=== PATIENT | male | born 1945 | race Caucasian/White ===

== ENCOUNTER 2022-06-04 16:49 | Inpatient (IN) ==
--- NOTE | 2022-06-04 18:02 | Emergency Department Note ---
Weakness HPI General Chief complaint: Weakness Stated complaint: Failure to thrive Time Seen by Provider: 06/04/22 18:02 Source: EMS and RN notes reviewed Mode of arrival: EMS Limitations: altered mental status and other History of Present Illness HPI Narrative: Narrative: 77-year-old male presents emergency department because of altered mental status. Patient is unable to provide any history. According to the verbal history from nurses the patient was in hospice which I later learned was due to his stage IV prostate cancer. As a hospice patient he was living in a home with at least 2 others. 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 Hospice determined that the patient could not safely stay at that location and so revoked hospice today. Patient was then to go to [place] for long term care but the patient did not qualify and ended up in our emergency department. I later learned that the patient had stage IV prostate cancer including mets to the liver and bony locations. Patient was unable to provide any history. I was told the patient had an ulcer on his left hip. Related Data Home Medications Medication Instructions Recorded Confirmed atenolol 50 mg tablet 50 mg PO ONCE 09/23/15 09/23/15 lisinopril 5 mg tablet 5 mg PO DAILY 09/23/15 09/23/15 simvastatin 20 mg tablet 20 mg PO HS 09/23/15 09/23/15 Previous Rx's Medication Instructions Recorded ondansetron 4 mg disintegrating 4 mg PO Q4-6H PRN Nausea And 09/24/15 tablet (Zofran ODT) Vomiting ##14 Allergies Allergy/AdvReac Type Severity Reaction Status Date / Time No Known Drug Allergies Allergy Verified 05/30/20 07:45 Review of Systems ROS ROS Narrative: Narrative: Limitations: ROS unobtainable due to patients medical condition (Nonverbal, altered mental status) [facility] Narrative Patient History Narrative: Narrative: Medical/Surgical/Family History All Active Problems (Updated 06/05/22 @ 07:22 by Aneesh Bernabe MD) Anemia (Acute) Acute alteration in mental status (Acute) assisted (current) use of antithrombotics/antiplatelets (Chronic) COPD (chronic obstructive pulmonary disease) with emphysema (Chronic) Hypertension, essential (Chronic) Peripheral arterial disease (Chronic) History of prostate cancer (Chronic) Nausea & vomiting (Acute) Lower gastrointestinal hemorrhage (Acute) Epistaxis (Acute) Medical History COPD (chronic obstructive pulmonary disease) with emphysema History of prostate cancer 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 05/27/2020 Nausea & vomiting Peripheral arterial disease Surgical History Hx of aorto-femoral bypass Patient indicates more subclavian area bypass down to the bilateral lower extremities. Social History Smoking Status: Former smoker Exam Narrative Narrative: Narrative: Left hip has a erythematous region approximately 3 cm diameter which has to smaller 1 today centimeter yellow skin breakdown areas that is partial- thickness. General Limitations: altered mental status and other General appearance: Present cachectic and in no apparent distress Head Head: Present atraumatic and normocephalic Eye Eye: Present normal appearance; Absent scleral icterus ENT ENT: Present mucous membranes dry Neck Neck: Present other (Full body stiffness. Unable to flex and extend the neck but also unable to move it side to side or to rotate on its axis.) Chest Chest: Present symmetric chest wall rise Respiratory Respiratory: Present normal lung sounds bilaterally; Absent respiratory distress Cardiovascular Cardiovascular: Present normal rhythm and tachycardia Adbominal Abdominal: Present soft; Absent tenderness Extremities Extremities: Absent pedal edema Back Back: Absent tenderness Neurological Neurological: Present other (Moans and tried to form words but was unintelligible) Psychiatric Psychiatric: Absent tearful or polite Skin Skin: Present warm (WNL) and dry Course Vital Signs Vital signs: Vital Signs Temperature 97.7 F 06/04/22 16:51 Pulse Rate 90 06/04/22 16:51 Respiratory Rate 18 06/04/22 16:51 Blood Pressure 137/74 06/04/22 16:51 Pulse Oximetry (%) 87 L 06/04/22 16:51 Oxygen Delivery Method 06/04/22 16:51 Temperature 97.9 F 06/05/22 01:30 Pulse Rate 91 H 06/05/22 01:30 Respiratory Rate 16 06/05/22 01:30 Blood Pressure 123/63 06/05/22 01:30 Pulse Oximetry (%) 91 06/05/22 01:30 Oxygen Delivery Method 06/05/22 01:30 Oxygen Flow Rate (L/min) 2 06/05/22 01:30 MDM MDM Narrative Medical decision making narrative: Narrative: Elderly male presents emerged department with stage IV prostate cancer in hospice until earlier today when it was revoked now with altered mental status and unknown baseline. Differential diagnosis includes mets to the brain, sepsis, dehydration, UTI, other. urine dip MOD blood. no nitri. no leuk. concentrated Laboratory:White count was elevated at 12.1 with a hemoglobin of 10.3 which was higher than 2 years ago. Patient has history of anemia. INR was 1.2 electrolytes were normal BUN and creatinine were normal glucose was mildly elevated at 116 bilirubin mildly elevated at 1.2 urinalysis showed 5 red blood cells and 9 white blood cells per high-powered field CT results showed no acute pathology. It was later reviewed by our radiologist who had the following impression: IMPRESSION: Mild atrophy and chronic ischemic changes in the deep cerebral white matter-expected for age. A few small remote lacunar infarcts in the basal ganglia and thalamus. No acute findings Soft tissue filling the mesotympanium of the left petrous temporal region. This may represent fibrosis from prior inflammation, active inflammation or cholesteatoma. Please correlate with symptoms of left conductive hearing loss and consider otolaryngology referral Patient had 2 SIRS criteria with a white count greater than 12,000 and heart rate greater than 90. He had a suspected infection in his bladder but it turned out not to be his bladder I had initiated 1 g of ceftriaxone and 500 mg of azithromycin prior to getting the urine results in anticipation of sepsis. Patient also had a wound on his left hip which was a stage II ulcer that could have been infected but I suspect is not. Chest x-ray is suspicious for effusion which may be secondary to the cancer and could potentially have infection or pneumonia as well. Chest x-ray was later interpreted by radiologist to show a large left pleural effusion with underlying COPD but no comment regarding possible infection. Case was discussed with , the hospitalist and the patient will be admitted for altered mental status. Lab Data Result diagrams: 06/04/22 18:12 06/04/22 18:12 Labs: Lab Results 06/04/22 06/04/22 06/04/22 Range/Units 18:12 18:12 19:36 WBC 12.1 H (4.5-11.0) K/mcL RBC 3.22 L (4.63-6.08) M/mcL Hgb 10.3 L (13.7-17.5) g/dL Hct 31.8 L (40.1-51.0) % MCV 98.8 (80.0-100.0) fL MCH 32.0 (26.0-34.0) pg MCHC 32.4 (31.0-36.0) g/dL RDW 22.5 H (11.5-14.5) % Plt Count 212 (140-440) K/mcL MPV 10.9 H (7.4-10.4) fL Immature Gran % (Auto) 0.6 H (0.0-0.5) % Neut % (Auto) 78.6 H (38.0-78.0) % Lymph % (Auto) 9.7 L (15.5-49.0) % [place] % (Auto) 10.8 (1.0-12.0) % Eos % (Auto) 0.1 (0.0-7.0) % Baso % (Auto) 0.2 (0.0-2.0) % Lymph # (Auto) 1.17 L (1.50-4.80) K/mcL [place] # (Auto) 1.31 H (0.10-0.90) K/mcL Eos # (Auto) 0.01 (0.00-0.70) K/mcL Baso # (Auto) 0.02 (0.00-0.30) K/mcL Immature Gran # 0.07 H (0.00-0.05) K/mcl Absolute Neutrophils 9.58 H (1.80-8.00) K/mcL PT (11.9-14.5) sec INR (0.9-1.1) VBG Lactic Acid 1.2 (0.5-2.0) mmol/L Sodium 137 (133-145) mmol/L Potassium 4.0 (3.3-5.1) mmol/L Chloride 99 (96-108) mmol/L Carbon Dioxide 29 (22-30) mmol/L Anion Gap 9.0 (8.0-16.0) BUN 21 (8-23) mg/dL Creatinine 0.9 (0.7-1.2) mg/dL GFR Calculation 82 Glucose 116 H (70-105) mg/dL Calcium 8.2 L (8.6-10.4) mg/dL Total Bilirubin 1.2 H (0.1-1.0) mg/dL AST 20 (<40) U/L ALT 7 (<40) U/L Alkaline Phosphatase 210 H (39-117) U/L Total Protein 6.4 (5.9-8.4) gm/dL Albumin 1.8 L (3.2-5.2) gm/dL Globulin 4.6 H (2.2-3.7) gm/dL Albumin/Globulin Ratio 0.4 L (1.0-2.3) Urine Color Urine Appearance (Clear) Urine pH (5.0-9.0) Ur Specific [place] (1.000-1.035) Urine Protein (Negative) mg/dL Urine Glucose (UA) (Negative) mg/dL Urine Ketones (Negative) mg/dL Urine Occult Blood (Negative) [place]uel[place]/mcL Urine Nitrate (Negative) Urine Bilirubin (Negative) mg/dL Urine Urobilinogen mg/dL Ur Leukocyte Esterase (Negative) /uL Urine RBC (0-3) /hpf Urine WBC (0-4) /hpf Ur Squamous Epith Cells (0-4) /hpf Urine Bacteria (0) /hpf Hyaline Casts (0-2) /lph Urine Mucus (None) /hpf Ur Culture Indicated? 06/04/22 06/04/22 Range/Units 19:36 20:31 WBC (4.5-11.0) K/mcL RBC (4.63-6.08) M/mcL Hgb (13.7-17.5) g/dL Hct (40.1-51.0) % MCV (80.0-100.0) fL MCH (26.0-34.0) pg MCHC (31.0-36.0) g/dL RDW (11.5-14.5) % Plt Count (140-440) K/mcL MPV (7.4-10.4) fL Immature Gran % (Auto) (0.0-0.5) % Neut % (Auto) (38.0-78.0) % Lymph % (Auto) (15.5-49.0) % [place] % (Auto) (1.0-12.0) % Eos % (Auto) (0.0-7.0) % Baso % (Auto) (0.0-2.0) % Lymph # (Auto) (1.50-4.80) K/mcL [place] # (Auto) (0.10-0.90) K/mcL Eos # (Auto) (0.00-0.70) K/mcL Baso # (Auto) (0.00-0.30) K/mcL Immature Gran # (0.00-0.05) K/mcl Absolute Neutrophils (1.80-8.00) K/mcL PT 15.5 H (11.9-14.5) sec INR 1.2 H (0.9-1.1) VBG Lactic Acid (0.5-2.0) mmol/L Sodium (133-145) mmol/L Potassium (3.3-5.1) mmol/L Chloride (96-108) mmol/L Carbon Dioxide (22-30) mmol/L Anion Gap (8.0-16.0) BUN (8-23) mg/dL Creatinine (0.7-1.2) mg/dL GFR Calculation Glucose (70-105) mg/dL Calcium (8.6-10.4) mg/dL Total Bilirubin (0.1-1.0) mg/dL AST (<40) U/L ALT (<40) U/L Alkaline Phosphatase (39-117) U/L Total Protein (5.9-8.4) gm/dL Albumin (3.2-5.2) gm/dL Globulin (2.2-3.7) gm/dL Albumin/Globulin Ratio (1.0-2.3) Urine Color Yellow Urine Appearance Clear (Clear) Urine pH 5.5 (5.0-9.0) Ur Specific [place] 1.025 (1.000-1.035) Urine Protein 30 mg/dl A (Negative) mg/dL Urine Glucose (UA) Negative (Negative) mg/dL Urine Ketones Trace A (Negative) mg/dL Urine Occult Blood Moderate A (Negative) [place]/mcL Urine Nitrate Negative (Negative) Urine Bilirubin Negative (Negative) mg/dL Urine Urobilinogen 4.0 e.u./dl A mg/dL Ur Leukocyte Esterase Negative (Negative) /uL Urine RBC 5 H (0-3) /hpf Urine WBC 9 H (0-4) /hpf Ur Squamous Epith Cells 0 (0-4) /hpf Urine Bacteria None (0) /hpf Hyaline Casts 1 (0-2) /lph Urine Mucus Many A (None) /hpf Ur Culture Indicated? No ED POC Tests ED POC Tests: JANUARY - SARS Antigen Negative Discharge Plan Patient/Caregiver Discharge Instructions Pt seen by PROJECT GEOPHYSICIST/PA only: No Clinical Impression: Acute alteration in mental status Patient Disposition: Xfer As Inpt ([facility]) Condition: Serious Discharge Date/Time: 06/05/22 01:10
[2022-06-04 18:41] LABS: Basophils # (Auto) 0.02 K/mcL (0.00-0.30); Basophils % (Auto) 0.2 % (0.0-2.0); Eosinophils # (Auto) 0.01 K/mcL (0.00-0.70); Eosinophils % (Auto) 0.1 % (0.0-7.0); Hematocrit 31.8 % (40.1-51.0); Hemoglobin 10.3 g/dL (13.7-17.5); Lymphocytes # (Auto) 1.17 K/mcL (1.50-4.80); Lymphocytes % (Auto) 9.7 % (15.5-49.0); Mean Cell Volume 98.8 fL (80.0-100.0); Mean Corpuscular HGB Conc 32.4 g/dL (31.0-36.0); Mean Platelet Volume 10.9 fL (7.4-10.4); Monocytes # (Auto) 1.31 K/mcL (0.10-0.90); Monocytes % (Auto) 10.8 % (1.0-12.0); Neutrophils % (Auto) 78.6 % (38.0-78.0); Platelet Count 212 K/mcL (140-440); RBC 3.22 M/mcL (4.63-6.08); Red Cell Distribution Width 22.5 % (11.5-14.5); WBC 12.1 K/mcL (4.5-11.0)
[2022-06-04 19:10] LABS: ALT/SGPT 7 U/L (<40); AST/SGOT 20 U/L (<40); Albumin 1.8 gm/dL (3.2-5.2); Albumin/Globulin Ratio 0.4 (1.0-2.3); Alkaline Phosphatase 210 U/L (39-117); Bilirubin,Total 1.2 mg/dL (0.1-1.0); Blood Urea Nitrogen 21 mg/dL (8-23); Calcium 8.2 mg/dL (8.6-10.4); Carbon Dioxide 29 mmol/L (22-30); Chloride 99 mmol/L (96-108); Globulin 4.6 gm/dL (2.2-3.7); Glomerular Filtration Rate 82; Glucose 116 mg/dL (70-105)
[2022-06-04] MEDS ORDERED: cefTRIAXone 1 GM VIAL IV ONE (20:16)
[2022-06-04] MEDS ORDERED: 0.9 % SODIUM CHLORIDE 1,000 ML IV ONE (20:34)
[2022-06-04] MEDS ORDERED: AZITHROMYCIN 500 MG in DEXTROSE 5% IN WATER 250 ML IV ONE (20:50)
[2022-06-04 21:09] LABS: INR 1.2 (0.9-1.1); Prothrombin Time 15.5 sec (11.9-14.5)
[2022-06-04 21:24] LABS: Appearance,Urine Clear (Clear); Bilirubin,Urine Negative (Negative); Color,Urine Yellow; Culture Indicated,Urine No; Glucose,Urine (UA) Negative (Negative); Ketones,Urine Trace mg/dL (Negative); Leukocyte Esterase,Urine Negative /uL (Negative); Mucus,Urine MANY /hpf; Nitrate,Urine Negative (Negative); PH,Urine 5.5 (5.0-9.0); Specific Gravity,Urine 1.025 (1.000-1.035); Urine Blood Moderate ery/mcL (Negative); Urine Hyaline Cast 1 /lph (0-2); Urine RBC 5 /hpf (0-3); Urine Squamous Epithelial Cell 0 /hpf (0-4); Urine WBC 9 /hpf (0-4); Urobilinogen,Urine 4.0 E.U./dL mg/dL
[2022-06-04] MEDS ORDERED: 0.9 % SODIUM CHLORIDE 1,000 ML IV SCH (23:45)
--- NOTE | 2022-06-05 05:29 | XRay Report ---
CLINICAL INFORMATION: Decreased mental status. COMPARISON: 12/09/[address] 11/01/2016 TECHNIQUE: PA and Lateral views FINDINGS: The heart size, mediastinum and pulmonary vessels are unremarkable. Moderate underlying centrilobular emphysema again noted. Moderate left pleural effusion occupies one half of the left thorax volume resulting in complete compressive left lower lobe and lingular atelectasis. The remainder of the lungs are clear. Stent overlies the right subclavian artery. IMPRESSION: Moderate/large left pleural effusion resulting in compressive atelectasis in the lingula and left lower lobe Underlying COPD Interpreted and Authenticated by: Jaylen De La Garza 06/05/22
--- NOTE | 2022-06-05 05:50 | Cat Scan Report ---
CLINICAL INFORMATION: Altered mental status COMPARISON: None. TECHNIQUE: 2.5 mm helical slices were obtained in the skull base to vertex. Following reconstruction, axial reformatted images were reviewed at bone and parenchymal windows. The exam was performed using radiation dose optimization techniques including, but not limited to, automated exposure control, adjustment of the mA and/or kV according to patient size and use of iterative reconstruction technique. FINDINGS: The ventricles, sulci, fissures, and cisterns are symmetrically enlarged compatible with mild age-related atrophy. No extra-axial fluid collections are identified. Mild patchy chronic ischemic changes, in the deep cerebral white matter, are expected for age. Few small remote lacunar infarcts in the basal ganglia and thalamus There is no hemorrhage, mass effect, or edema. Bone windows show soft tissue density filling the left mesotympanium. Few small polyp are present in the ethmoid and upper nasal region IMPRESSION: Mild atrophy and chronic ischemic changes in the deep cerebral white matter-expected for age. A few small remote lacunar infarcts in the basal ganglia and thalamus. No acute findings Soft tissue filling the mesotympanium of the left petrous temporal region. This may represent fibrosis from prior inflammation, active inflammation or cholesteatoma. Please correlate with symptoms of left conductive hearing loss and consider otolaryngology referral Interpreted and Authenticated by: Jaylen De La Garza 06/05/22
--- NOTE | 2022-06-05 07:43 | Internal Med History&Physical ---
HPI History of Present Illness Patient information: Note initiated : 06/05/22 at 7:39 am Service Date, if different from initiated Date: [] Patient: Emerson Moreno a 77 y/o M admitted on 06/05/22 for Failure to thrive. Chief Complaint: [] History of present illness: Mr. Moreon is a 77 year old M Presents to the ED with recent stupor declining in the home. APS is involved. Patient has [facility] involved in his care. APS unable to contact sister. [employer] is out of town. EMS found to young people smoking meth in the home that ran out when they arrived. Patient was found to be covered in stool. Patient not speaking. Patient saturations 87% on room air. Chest x-ray showing large left pleural effusion. Patient has a history of prostate cancer and metastatic disease to the liver as well as the pelvis lumbar spine and thoracic spine. He has declined treatment and thus the reason for being on hospice. He also has a history of severe cardiomyopathy severe vascular disease and COPD. 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 05/27/2020 Nausea & vomiting Peripheral arterial disease Surgical History Hx of aorto-femoral bypass Patient indicates more subclavian area bypass down to the bilateral lower extremities. MEDS/ALLERGIES Home Medications and Allergies Home Medications Medication Instructions Recorded Confirmed Type atenolol 50 mg tablet 50 mg PO ONCE 09/23/15 09/23/15 History lisinopril 5 mg tablet 5 mg PO DAILY 09/23/15 09/23/15 History simvastatin 20 mg tablet 20 mg PO HS 09/23/15 09/23/15 History ondansetron 4 mg disintegrating 4 mg PO Q4-6H PRN Nausea And 09/24/15 Rx tablet (Zofran ODT) Vomiting ##14 Allergies Allergy/AdvReac Type Severity Reaction Status Date / Time No Known Drug Allergies Allergy Verified 05/30/20 07:45 EXAM Constitutional Vitals: Temp Pulse Resp BP Pulse Ox O2 Del Method O2 Flow Rate 97.3 F 91 H 16 143/69 92 2 06/05/22 07:34 06/05/22 01:30 06/05/22 07:34 06/05/22 07:34 06/05/22 07:34 06/05/22 07:34 06/05/22 07:34 Exam: General: Awake, No acute Distress, frail cachectic Eyes/N/T: EOMI, PERRL, dry MM Head/Neck: neck supple, normocephalic atraumatic CV: RRR, No murmurs, normal s1/s2 Pulm: Clear b/l, no wheezing/rhonchi/rales Abd: soft, nontender, +BS x4 Ext: no clubbing/cyanosis/edema Neuro:no focal deficits, moves all extremities spontaneously, does not follow commands Skin: warm/dry, left hip pressure wound DATA Data Completed and Pending Labs: Labs from last 24 hours 06/04/22 06/04/22 06/04/22 20:31 19:36 19:36 WBC RBC Hgb Hct MCV MCH MCHC RDW Plt Count MPV Immature Gran % (Auto) Neut % (Auto) Lymph % (Auto) [place] % (Auto) Eos % (Auto) Baso % (Auto) Lymph # (Auto) [place] # (Auto) Eos # (Auto) Baso # (Auto) Immature Gran # Absolute Neutrophils PT 15.5 H INR 1.2 H VBG Lactic Acid 1.2 Sodium Potassium Chloride Carbon Dioxide Anion Gap BUN Creatinine GFR Calculation Glucose Calcium Total Bilirubin AST ALT Alkaline Phosphatase Total Protein Albumin Globulin Albumin/Globulin Ratio Urine Color Yellow Urine Appearance Clear Urine pH 5.5 Ur Specific [place] 1.025 Urine Protein 30 mg/dl A Urine Glucose (UA) Negative Urine Ketones Trace A Urine Occult Blood Moderate A Urine Nitrate Negative Urine Bilirubin Negative Urine Urobilinogen 4.0 e.u./dl A Ur Leukocyte Esterase Negative Urine RBC 5 H Urine WBC 9 H Ur Squamous Epith Cells 0 Urine Bacteria None Hyaline Casts 1 Urine Mucus Many A Ur Culture Indicated? No 06/04/22 06/04/22 18:12 18:12 WBC 12.1 H RBC 3.22 L Hgb 10.3 L Hct 31.8 L MCV 98.8 MCH 32.0 MCHC 32.4 RDW 22.5 H Plt Count 212 MPV 10.9 H Immature Gran % (Auto) 0.6 H Neut % (Auto) 78.6 H Lymph % (Auto) 9.7 L [place] % (Auto) 10.8 Eos % (Auto) 0.1 Baso % (Auto) 0.2 Lymph # (Auto) 1.17 L [place] # (Auto) 1.31 H Eos # (Auto) 0.01 Baso # (Auto) 0.02 Immature Gran # 0.07 H Absolute Neutrophils 9.58 H PT INR VBG Lactic Acid Sodium 137 Potassium 4.0 Chloride 99 Carbon Dioxide 29 Anion Gap 9.0 BUN 21 Creatinine 0.9 GFR Calculation 82 Glucose 116 H Calcium 8.2 L Total Bilirubin 1.2 H AST 20 ALT 7 Alkaline Phosphatase 210 H Total Protein 6.4 Albumin 1.8 L Globulin 4.6 H Albumin/Globulin Ratio 0.4 L Urine Color Urine Appearance Urine pH Ur Specific [place] Urine Protein Urine Glucose (UA) Urine Ketones Urine Occult Blood Urine Nitrate Urine Bilirubin Urine Urobilinogen Ur Leukocyte Esterase Urine RBC Urine WBC Ur Squamous Epith Cells Urine Bacteria Hyaline Casts Urine Mucus Ur Culture Indicated? 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 dz: *severe PVD by LE bypass grafts: *Anemia, chronic: *HTN/HLD: was on Lisinopril/Metoprolol and statin in past *COPD: *Tobacco abuse: *GERD: was on PPI in past *Depression: was on SSRI in past P: -thoracentesis -IVF -Dietary consult -Goals of care discussion -PT/OT -Home medication reconciliation -CM for placement -ppx: Lovenox DNR Time Spent With Patient Time: Total time spent is greater than 50% in coordination of care (as documented) at patient's floor/unit and/or counseling patient: Total time spent with greater than 50% in coordination of care (as documented) at patient's floor/unit and/or counseling patient:: 50 - 70 minutes QUALITY VTE Deep Vein Thrombosis/Pulmonary Embolism Present on Admission: No
[2022-06-05] MEDS ORDERED: LABETALOL 5 MG/ML ML IV PRN (07:44)
[2022-06-05] MEDS ORDERED: ONDANSETRON 4 MG/2 ML VIAL IV PRN (10:06)
[2022-06-05] MEDS ORDERED: POLYETHYLENE GLYCOL 3350 17 GM PACKET PO PRN (10:06)
[2022-06-05] MEDS ORDERED: MAGNESIUM SULFATE 2 GM/50 ML BAG IV PRN (10:06)
[2022-06-05] MEDS ORDERED: SENNOSIDES 1 TABLET PO PRN (10:06)
[2022-06-05] MEDS ORDERED: POTASSIUM CHLORIDE 20 MEQ TABLET PO PRN ×2 (10:06)
[2022-06-05] MEDS ORDERED: POTASSIUM CHLORIDE 40 MEQ in DEXTROSE 5% IN WATER 500 ML IV PRN (10:06)
[2022-06-05] MEDS ORDERED: IPRATROPIUM/ALBUTEROL 3 ML AMPUL.NEB NEB PRN (10:07)
[2022-06-05] MEDS ORDERED: ACETAMINOPHEN 325 MG TABLET PO PRN (10:07)
[2022-06-05] MEDS ORDERED: HYDROmorphone 0.5 MG/0.5 ML SYRINGE IV PRN (10:07)
[2022-06-05] MEDS ORDERED: morphine 4 MG/ML VIAL IV PRN (10:07)
--- NOTE | 2022-06-05 11:50 | Ultrasound Report ---
CLINICAL INFORMATION: Ultrasound-guided thoracentesis CLINICAL INFORMATION: Moderate left pleural effusion TECHNIQUE: Procedure and risks including possibility of bleeding, infection, and pneumothorax were explained to the patient. They understood and wished to proceed. With the patient in upright position, the fluid was first sonographically localized over the posterior left 10th intercostal space at posterior axillary line. The skin overlying this region was marked, prepped and locally anesthetized with 1% lidocaine using a 25-gauge needle to the level the parietal pleura. An 18-gauge Yueh needle was then advanced under sonographic guidance into the pleural fluid and approximately 1 L of simple appearing transudative fluid was aspirated. Post procedure scanning shows only minimal residual fluid. Patient tolerated procedure well without apparent complication. Follow-up chest x-ray to be obtained IMPRESSION: Successful thoracentesis yielding 1 L of transudative appearing simple pleural fluid. No apparent complication Interpreted and Authenticated by: Jaylen De La Garza 06/05/22
--- NOTE | 2022-06-05 11:54 | XRay Report ---
CLINICAL INFORMATION: Status post left thoracentesis COMPARISON: None. TECHNIQUE: PA and Lateral views FINDINGS: The heart size, mediastinum and pulmonary vessels are unremarkable. Following left thoracentesis, there is only tiny residual left pleural effusion. The left lower lobe, previously atelectatic, is now reexpanded. Small infiltrate developing in the right base. COPD noted. IMPRESSION: Following left arthrodesis, only a small residual left pleural effusion. No pneumothorax or other complication. The left lower lobe has reexpanded. Minor infiltrate or atelectasis right base-new Interpreted and Authenticated by: Jaylen De La Garza 06/05/22
[2022-06-05 13:08] LABS: Glucose,Pleural Fluid 113 mg/dL; LDH,Pleural Fluid 97 U/L (<122)
[2022-06-05 14:09] LABS: Appearance,Pleural Fluid Clear; Color,Pleural Fluid Yellow; Eosinophils,Pleural Fluid 1 %; Lymphocytes,Pleural Fluid 62 %; Mesothelial,Pleural Fluid 4 %; Monocytes,Pleural Fluid 13 %; Neutrophils,Pleural Fluid 20 %; Nucleated Cells,Pleural Fld 85 /cumm; RBC,Pleural Fluid <50,000 /cumm
[2022-06-05] MEDS: 0.9 % SODIUM CHLORIDE 10 ML SYRINGE IV SCH ×2 (15:18→20:39)
[2022-06-05] MEDS: DOCUSATE SODIUM 100 MG CAPSULE PO SCH (20:39)
[2022-06-06] MEDS: 0.9 % SODIUM CHLORIDE 10 ML SYRINGE IV SCH ×4 (05:47→20:29)
--- NOTE | 2022-06-06 08:05 | Internal Med Progress Note ---
SUBJECTIVE Subjective Patient information: Note initiated : 06/06/22 at 8:00 am Service Date, if different from initiated Date: [] Patient: Emerson Moreno a 77 y/o M admitted on 06/05/22 for Failure to thrive. Chief Complaint: [] Interval history: History of present illness: Mr. Moreno is a 77 year old M Presents to the ED with recent stupor declining in the home. APS is involved. Patient has [facility] involved in his care. APS unable to contact sister. Motor Man is out of town. EMS found to young people smoking meth in the home that ran out when they arrived. Patient was found to be covered in stool. Patient not speaking. Patient saturations 87% on room air. Chest x-ray showing large left pleural effusion. Patient has a history of prostate cancer and metastatic disease to the liver as well as the pelvis lumbar spine and thoracic spine. He has declined treatment and thus the reason for being on hospice. He also has a history of severe cardiomyopathy severe vascular disease and COPD. History is obtained from chart as patient does not communicate sometimes speaks unintelligibly 06/06 Patient sleeping but awakens to touch. Nonverbal. Review of system: Unable to obtain given patient nonverbal status Constitutional Vitals: Vital Signs Temp Pulse Resp BP Pulse Ox O2 Del Method O2 Flow Rate 98.3 F 87 18 135/73 94 2 06/06/22 07:46 06/06/22 07:46 06/06/22 07:46 06/06/22 07:46 06/06/22 07:46 06/06/22 07:46 06/06/22 07:46 Period Temp Pulse Resp BP Sys/Guerra Pulse Ox O2 Del Method O2 Flow Rate Last 24 Hr 97.3 F-98.6 F 78-87 16-20 89-135/51-73 91-98 Nasal Cannula- Room Air 2-2 Intake and Output 06/05/22 06/06/22 06/06/22 21:59 05:59 13:59 Intake Total 180 0 Output Total 1 Balance 180 -1 Weight 40.234 kg Intake & Output: Intake & Output 06/05/22 06/06/22 06/06/22 21:59 05:59 13:59 Intake Total 180 0 Output Total 1 Balance 180 -1 Weight 40.234 kg Intake: Oral 180 0 Output: # of times incontinent of urine 1 Exam: General: Sleeping but awakens, No acute Distress, frail cachectic Eyes/N/T: EOMI, Head/Neck: neck supple, CV: RRR, No murmurs, Pulm: Clear b/l, no wheezing/rhonchi/rales Abd: soft, nontender, +BS x4 Ext: no clubbing/cyanosis/edema Neuro:no focal deficits, moves all extremities spontaneously, does not follow commands Skin: warm/dry, left hip pressure wound OBJ DATA Labs CBC & Chem 7: 06/04/22 18:12 06/04/22 18:12 Labs: Abnormal Lab Results 06/04/22 06/04/22 06/04/22 20:31 19:36 18:12 WBC RBC Hgb Hct RDW MPV Immature Gran % (Auto) Neut % (Auto) Lymph % (Auto) Lymph # (Auto) [place] # (Auto) Immature Gran # Absolute Neutrophils PT 15.5 H INR 1.2 H Glucose 116 H Calcium 8.2 L Total Bilirubin 1.2 H Alkaline Phosphatase 210 H Albumin 1.8 L Globulin 4.6 H Albumin/Globulin Ratio 0.4 L Urine Protein 30 mg/dl A Urine Ketones Trace A Urine Occult Blood Moderate A Urine Urobilinogen 4.0 e.u./dl A Urine RBC 5 H Urine WBC 9 H Urine Mucus Many A 06/04/22 18:12 WBC 12.1 H RBC 3.22 L Hgb 10.3 L Hct 31.8 L RDW 22.5 H MPV 10.9 H Immature Gran % (Auto) 0.6 H Neut % (Auto) 78.6 H Lymph % (Auto) 9.7 L Lymph # (Auto) 1.17 L [place] # (Auto) 1.31 H Immature Gran # 0.07 H Absolute Neutrophils 9.58 H PT INR Glucose Calcium Total Bilirubin Alkaline Phosphatase Albumin Globulin Albumin/Globulin Ratio Urine Protein Urine Ketones Urine Occult Blood Urine Urobilinogen Urine RBC Urine WBC Urine Mucus Meds: Medications Acetaminophen (Acetaminophen 325 Mg Tablet) 650 mg PO Q6HP PRN; Protocol PRN Reason: Per Pain Protocol/Fever > 101 Albuterol/Ipratropium (Ipratropium/Albuterol 3 Ml Ampul.Neb) 3 ml NEB Q4HP PRN PRN Reason: Shortness Of Breath Docusate Sodium (Docusate Sodium 100 Mg Capsule) 100 mg PO BID [facility] Last Admin: 06/05/22 20:39 Dose: Not Given Enoxaparin Sodium (Enoxaparin 30 Mg/0.3 Ml Syringe) 30 mg SQ DAILY [facility] Hydromorphone HCl (Hydromorphone 0.5 Mg/0.5 Ml Syringe) 0 mg IV Q2HP PRN PRN Reason: Pain Potassium Chloride 40 meq/ (Dextrose) 520 mls @ 130 mls/hr IV UD PRN PRN Reason: Potassium < 3 Magnesium Sulfate (Magnesium Sulfate) 2 gm in 50 mls @ 50 mls/hr IV UD PRN PRN Reason: Magnesium </= 1.6 Labetalol HCl (Labetalol 5 Mg/Ml Ml) 0 mg IV Q2HP PRN PRN Reason: Hypertension Morphine Sulfate (Morphine 4 Mg/Ml Vial) 0 mg IV Q3HP PRN PRN Reason: Pain Ondansetron HCl (Ondansetron 4 Mg/2 Ml Vial) 4 mg IV Q4HP PRN PRN Reason: Nausea And Vomiting Polyethylene Glycol (Polyethylene Glycol 3350 17 Gm Packet) 17 gm PO DAILYP PRN PRN Reason: Constipation Potassium Chloride (Potassium Chloride 20 Meq Tablet) 40 meq PO UD PRN PRN Reason: Potssium is 3-3.5 Potassium Chloride (Potassium Chloride 20 Meq Tablet) 40 meq PO UD PRN PRN Reason: Potassium < 3 Senna (Sennosides 1 Tablet) 2 tab PO DAILYP PRN PRN Reason: Constipation Sodium Chloride (0.9 % Sodium Chloride 10 Ml Syringe) 10 ml IV Q8 [facility] Last Admin: 06/06/22 05:47 Dose: 10 ml A/P Narrative A/P Narrative: 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: *h/o prostate CA w/metastatic dz to pelvis/lumbar/thoracic spine/ribs/liver *h/o systolic(25-30%)/diastolic(II) CHF & Valvular dz: *severe PVD with LE bypass grafts: *Anemia, chronic: *HTN/HLD: was on Lisinopril/Metoprolol and statin in past *COPD: *Tobacco abuse: *GERD: was on PPI in past *Depression: was on SSRI in past P: -pending labs -IVF finish -Dietary consult -Goals of care discussion with family, hospice -PT/OT -Home medication reconciliation -CM for placement -ppx: Lovenox DNR Time Spent With Patient Time: Total time spent is greater than 50% in coordination of care (as documented) at patient's floor/unit and/or counseling patient: Total time spent with greater than 50% in coordination of care (as documented) at patient's floor/unit and/or counseling patient:: 25 - 35 minutes QUALITY VTE Deep Vein Thrombosis/Pulmonary Embolism Present on Admission: No
[2022-06-06] MEDS ORDERED: ENOXAPARIN 30 MG/0.3 ML SYRINGE SQ SCH (09:00)
[2022-06-06] MEDS: DOCUSATE SODIUM 100 MG CAPSULE PO SCH ×2 (11:11→20:29)
--- NOTE | 2022-06-06 11:22 | Discharge Summary ---
Discharge Provider Provider IMPORTANT FOLLOW-UP INFORMATION FOR PCP: Patient information: Note initiated : 06/06/22 at 11:21 am Service Date, if different from initiated Date: [] Patient: Emerson Moreno 77 y/o M admitted on 06/05/22 for Failure to thrive. Chief Complaint: [] Date of admission: 06/05/22 01:10 Primary care physician: Annamaria Valencia Consults: 06/04/22 19:33 Consult to Physician [CONS] Stat Comment: Consulting Provider: Pascual Bird Reason For Exam: Physician to Consult COURSE Hospital Course Hospital course: History of present illness: Mr. Moreno is a 77 year old M Presents to the ED with recent stupor declining in the home. APS is involved. Patient has [facility] involved in his care. APS unable to contact sister. 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 EMS found to young people smoking meth in the home that ran out when they arrived. Patient was found to be covered in stool. Patient not speaking. Patient saturations 87% on room air. Chest x-ray showing large left pleural effusion. Patient has a history of prostate cancer and metastatic disease to the liver as well as the pelvis lumbar spine and thoracic spine. He has declined treatment and thus the reason for being on hospice. He also has a history of severe cardiomyopathy severe vascular disease and COPD. History is obtained from chart as patient does not communicate sometimes speaks unintelligibly 06/06 Patient sleeping but awakens to touch. Nonverbal. 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: *h/o prostate CA w/metastatic dz to pelvis/lumbar/thoracic spine/ribs/liver *h/o systolic(25-30%)/diastolic(II) CHF & Valvular dz: *severe PVD with LE bypass grafts: *Anemia, chronic: *HTN/HLD: was on Lisinopril/Metoprolol and statin in past *COPD: *Tobacco abuse: *GERD: was on PPI in past *Depression: was on SSRI in past P: -hospice Discharge diagnosis: Failure to thrive poor functional status inability to care for self malnutr Secondary discharge diagnosis: Malnutrition left pleural effusion hypoxia respite failure dementia advanced prostate cancer with metastatic disease systolic and diastolic heart failure peripheral vascular disease chronic anemia pretension COPD tobacco abuse GERD depression Time Spent with Patient Time attestation: Total time spent providing and/or coordinating discharge services: Time spent: Greater than 30 minutes EXAM Constitutional Vitals: Temp Pulse Resp BP Pulse Ox O2 Del Method O2 Flow Rate 98.3 F 87 18 135/73 94 2 06/06/22 07:46 06/06/22 07:46 06/06/22 07:46 06/06/22 07:46 06/06/22 07:46 06/06/22 07:46 06/06/22 07:46 Discharge Data Data Completed and Pending Labs on day of discharge: Labs from last 24 hours 06/05/22 06/05/22 11:05 11:05 Fluid Total Protein TNP Pleural Fluid Source Pleural Pleural Color Yellow Pleural Appearance Clear Pleural RBC <50,[address] 100 Pleural Nuc Cells 85 Pleural Neutrophils 20 Pleural Lymphocytes 62 Pleural Monocytes 13 Pleural Eosinophils 1 Pleural Mesothelial 4 Pleural Total Protein 2.5 Pleural LDH 97 Pleural Glucose 113 Preliminary micro results at discharge 06/04/22 19:45 Blood Culture - Preliminary Blood 06/04/22 19:36 Blood Culture - Preliminary Blood 06/05/22 11:05 Gram Stain - Preliminary Pleural Fluid Discharge Plan Patient/Caregiver Discharge Instructions Activity: increase activity as tolerated Diet: Regular Diet Prescriptions: New morphine 20 mg/5 mL (4 mg/mL) solution 10 mg PO Q1-2HP PRN (Reason: pain) Qty: 100 0RF hyoscyamine sulfate [Levsin/SL] 0.125 mg tablet, sublingual 0.125 mg sublingual QID PRN (Reason: terminal secretions) Qty: 20 0RF ondansetron 4 mg tablet,disintegrating 4 mg translingual Q6H PRN (Reason: nausea and vomiting) Qty: 30 0RF lorazepam 2 mg/mL concentrate 1 mg sublingual Q2HP PRN (Reason: anxiety) Qty: 30 0RF No Action simvastatin 20 MG tablet 20 mg PO HS lisinopril 5 MG tablet 5 mg PO DAILY atenolol 50 MG tablet 50 mg PO ONCE ondansetron [Zofran ODT] 4 MG tablet,disintegrating 4 mg PO Q4-6H PRN (Reason: Nausea And Vomiting) Qty: 14 0RF Follow Up Plan Follow up with: Annamaria Valencia ARNP [Primary Care Provider] - Prognosis: Serious Rehab Potential: Undetermined Overall status at discharge: other QUALITY VTE Deep Vein Thrombosis/Pulmonary Embolism Present on Admission: No
[2022-06-06] MEDS ORDERED: LORazepam 2 MG/ML VIAL IV PRN (13:44)
[2022-06-06] MEDS ORDERED: morphine 4 MG/ML VIAL NEB PRN (13:44)
[2022-06-06] MEDS ORDERED: ONDANSETRON 4 MG ODT TABLET SL PRN (13:44)
[2022-06-06] MEDS ORDERED: LACTOPEROXI/GLUC OXID/POT THIO 1 EACH GEL..EA. TOPICAL PRN (13:44)
[2022-06-06] MEDS ORDERED: HYDROmorphone 1 MG/ML SYRINGE IV PRN (13:44)
[2022-06-07] MEDS: 0.9 % SODIUM CHLORIDE 10 ML SYRINGE IV SCH ×3 (05:58→21:27)
--- NOTE | 2022-06-07 07:29 | EKG ---
[facility] Test Date: 2022-06-05 Pat Name: Emerson Moreno Department: [facility] Room: 112 Gender: Male Transitional Care Liaison: : 1945 Requested By: Pascual Bird Order Number: [id number] Reading MD: Jaylen Dixon M.D. Measurements Intervals [place] Rate: 88 P: -45 MD: 149 QRS: -68 QRSD: 96 T: 95 QT: 381 QTc: 461 Interpretive Statements Sinus or ectopic atrial rhythm Left anterior fascicular block LVH with secondary repolarization abnormality Possible Anterior infarct, old Electronically Signed On 06-07-2022 7:29:08 PDT by Jaylen Dixno M.D. /store/[email or web address]/[id number]
[2022-06-07] MEDS: DOCUSATE SODIUM 100 MG CAPSULE PO SCH ×2 (09:10→21:28)
--- NOTE | 2022-06-07 10:28 | Internal Med Progress Note ---
SUBJECTIVE Subjective Patient information: Note initiated : 06/07/22 at 10:27 am Service Date, if different from initiated Date: [] Patient: Emerson Moreno a 77 y/o M admitted on 06/05/22 for Failure to thrive. Chief Complaint: [] Interval history: History of present illness: Mr. Moreno is a 77 year old M Presents to the ED with recent stupor declining in the home. APS is involved. Patient has [facility] involved in his care. APS unable to contact sister. 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 EMS found to young people smoking meth in the home that ran out when they arrived. Patient was found to be covered in stool. Patient not speaking. Patient saturations 87% on room air. Chest x-ray showing large left pleural effusion. Patient has a history of prostate cancer and metastatic disease to the liver as well as the pelvis lumbar spine and thoracic spine. He has declined treatment and thus the reason for being on hospice. He also has a history of severe cardiomyopathy severe vascular disease and COPD. History is obtained from chart as patient does not communicate sometimes speaks unintelligibly 06/06 Patient sleeping but awakens to touch. Nonverbal. 06/07 No changes overnight. Patient little more talkative to staff overnight but not to me this morning. Review of system: Unable to obtain given patient nonverbal status Constitutional Vitals: Vital Signs Temp Pulse Resp BP Pulse Ox O2 Del Method O2 Flow Rate 98.7 F 83 18 106/62 93 2.5 06/07/22 08:00 06/07/22 08:00 06/07/22 08:00 06/07/22 08:00 06/07/22 08:00 06/07/22 08:00 06/07/22 08:00 Period Temp Pulse Resp BP Sys/Guerra Pulse Ox O2 Del Method O2 Flow Rate Last 24 Hr 98.4 F-98.7 F 83-91 14-18 86-106/49-62 91-93 Nasal Cannula- Nasal Cannula 2-2.5 Intake and Output 06/06/22 06/07/22 06/07/22 21:59 05:59 13:59 Intake Total 1000 250 Output Total 52 1 Balance 948 249 Weight 39.735 kg Intake & Output: Intake & Output 06/06/22 06/07/22 06/07/22 21:59 05:59 13:59 Intake Total 1000 250 Output Total 52 1 Balance 948 249 Weight 39.735 kg Intake: IV 1000 Sodium Chloride 0.9% 1,000 ml @ 1000 50 mls/hr IV .Q20H [facility] Rx#: [id number] Oral 250 Output: Void Amount 50 # of times incontinent of urine 2 1 Other: Urine Color Light Yaritza Urine Odor Normal # Voids 1 Exam: General: Awake and eating breakfast, no acute Distress, frail cachectic Eyes/N/T: EOMI, Head/Neck: neck supple, CV: RRR, No murmurs, Pulm: Clear b/l, no wheezing/rhonchi/rales Abd: soft, nontender, +BS x4 Ext: no clubbing/cyanosis/edema Neuro:no focal deficits, moves all extremities spontaneously, does not follow commands Skin: warm/dry, left hip pressure wound OBJ DATA Labs CBC & Chem 7: 06/04/22 18:12 06/04/22 18:12 Labs: Abnormal Lab Results 06/04/22 06/04/22 06/04/22 20:31 19:36 18:12 WBC RBC Hgb Hct RDW MPV Immature Gran % (Auto) Neut % (Auto) Lymph % (Auto) Lymph # (Auto) [place] # (Auto) Immature Gran # Absolute Neutrophils PT 15.5 H INR 1.2 H Glucose 116 H Calcium 8.2 L Total Bilirubin 1.2 H Alkaline Phosphatase 210 H Albumin 1.8 L Globulin 4.6 H Albumin/Globulin Ratio 0.4 L Urine Protein 30 mg/dl A Urine Ketones Trace A Urine Occult Blood Moderate A Urine Urobilinogen 4.0 e.u./dl A Urine RBC 5 H Urine WBC 9 H Urine Mucus Many A 06/04/22 18:12 WBC 12.1 H RBC 3.22 L Hgb 10.3 L Hct 31.8 L RDW 22.5 H MPV 10.9 H Immature Gran % (Auto) 0.6 H Neut % (Auto) 78.6 H Lymph % (Auto) 9.7 L Lymph # (Auto) 1.17 L [place] # (Auto) 1.31 H Immature Gran # 0.07 H Absolute Neutrophils 9.58 H PT INR Glucose Calcium Total Bilirubin Alkaline Phosphatase Albumin Globulin Albumin/Globulin Ratio Urine Protein Urine Ketones Urine Occult Blood Urine Urobilinogen Urine RBC Urine WBC Urine Mucus Meds: Medications Acetaminophen (Acetaminophen 325 Mg Tablet) 650 mg PO Q6HP PRN; Protocol PRN Reason: Per Pain Protocol/Fever > 101 Albuterol/Ipratropium (Ipratropium/Albuterol 3 Ml Ampul.Neb) 3 ml NEB Q4HP PRN PRN Reason: Shortness Of Breath Docusate Sodium (Docusate Sodium 100 Mg Capsule) 100 mg PO BID [facility] Last Admin: 06/07/22 09:10 Dose: Not Given Glucose Oxid/Lactoperoxid/Muramidas (Lactoperoxi/Gluc Oxid/Pot Thio 1 Each Gel..Ea.) 1 each TOPICAL PRN PRN PRN Reason: Dry Mouth Hydromorphone HCl (Hydromorphone 1 Mg/Ml Syringe) 0.5 - 2 mg IV Q2HP PRN; Protocol PRN Reason: Per Pain Protocol Lorazepam (Lorazepam 2 Mg/Ml Vial) 0 mg IV Q1HP PRN; Protocol PRN Reason: ANXIETY/SEDATION Morphine Sulfate (Morphine 4 Mg/Ml Vial) 4 mg NEB Q4HP PRN PRN Reason: Shortness Of Breath Ondansetron HCl (Ondansetron 4 Mg/2 Ml Vial) 4 mg IV Q4HP PRN PRN Reason: Nausea And Vomiting Ondansetron HCl (Ondansetron 4 Mg Odt Tablet) 4 mg SL Q4HP PRN; Protocol PRN Reason: Nausea And Vomiting Polyethylene Glycol (Polyethylene Glycol 3350 17 Gm Packet) 17 gm PO DAILYP PRN PRN Reason: Constipation Senna (Sennosides 1 Tablet) 2 tab PO DAILYP PRN PRN Reason: Constipation Sodium Chloride (0.9 % Sodium Chloride 10 Ml Syringe) 10 ml IV Q8 [facility] Last Admin: 06/07/22 05:58 Dose: 10 ml A/P Narrative A/P Narrative: 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: *h/o prostate CA w/metastatic dz to pelvis/lumbar/thoracic spine/ribs/liver *h/o systolic(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
[2022-06-07] MEDS: fentaNYL 25 MCG PATCH TOPICAL SCH (10:45)
[2022-06-07] MEDS: morphine 20 MG/ML ORAL.CONC SL PRN (13:17)
[2022-06-08] MEDS: 0.9 % SODIUM CHLORIDE 10 ML SYRINGE IV SCH ×2 (07:16→14:04)
[2022-06-08] MEDS: DOCUSATE SODIUM 100 MG CAPSULE PO SCH (09:35)
--- NOTE | 2022-06-08 12:32 | Internal Med Progress Note ---
SUBJECTIVE Subjective Patient information: Note initiated : 06/08/22 at 12:30 pm Service Date, if different from initiated Date: [] Patient: Emerson Moreno a 77 y/o M admitted on 06/05/22 for Failure to thrive. Chief Complaint: [] Interval history: Mr. Moerno is a 77 year old M Presents to the ED with recent stupor declining in the home. APS is involved. Patient has [facility] involved in his care. APS unable to contact sister. 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 EMS found to young people smoking meth in the home that ran out when they arriv ed. Patient was found to be covered in stool. Patient not speaking. Patient saturations 87% on room air. Chest x-ray showing large left pleural effusion. Patient has a history of prostate cancer and metastatic disease to the liver as well as the pelvis lumbar spine and thoracic spine. He has declined treatment and thus the reason for being on hospice. He also has a history of severe cardiomyopathy severe vascular disease and COPD. History is obtained from chart as patient does not communicate sometimes speaks unintelligibly 06/06 Patient sleeping but awakens to touch. Nonverbal. 06/07 No changes overnight. Patient little more talkative to staff overnight but not to me this morning. Review of system: Unable to obtain given patient nonverbal status 06/08: No major overnight events. Continue comfort care measures. We will work with social group worker assistant case manager for inpatient hospice placement. Pertinent ROS: not obtained due to clinical situations Constitutional Vitals: Vital Signs Temp Pulse Resp BP Pulse Ox O2 Del Method O2 Flow Rate 36.8 C 79 18 109/58 94 2 06/08/22 07:54 06/08/22 07:54 06/08/22 07:54 06/08/22 07:54 06/08/22 07:54 06/08/22 07:54 06/08/22 07:54 Period Temp Pulse Resp BP Sys/Guerra Pulse Ox O2 Del Method O2 Flow Rate Last 24 Hr 36.8 C-36.8 C 79-97 17-18 85-109/54-58 91-94 Nasal Cannula- Nasal Cannula 2-2.5 Intake and Output 06/07/22 06/08/22 06/08/22 21:59 05:59 13:59 Intake Total 250 150 120 Output Total 2 Balance 250 150 118 Weight 39.871 kg Intake & Output: Intake & Output 06/07/22 06/08/22 06/08/22 21:59 05:59 13:59 Intake Total 250 150 120 Output Total 2 Balance 250 150 118 Weight 39.871 kg Intake: Oral 250 150 120 Output: # of times incontinent of urine 2 Other: Meal Dinner Breakfast Percent of Meal Consumed 15% 50% Feeding Ability Total Assistance Total Assistance General appearance: thin Exam: non verbal Head Head exam: Present atraumatic and normal inspection Eye Eye exam: Present normal appearance ENT ENT exam: Present mucous membranes moist, normal exam and normal external ear exam Additional comments: Nasal cannula in place Neck Neck exam: Present normal inspection Respiratory Respiratory exam: Present normal respiratory exam Cardiovascular Cardiovascular exam: Present normal rate and rhythm GI/Abdominal GI/Abdominal exam: Present normal bowel sounds Back Exam Back exam: Present normal inspection Neurological Exam Neurological exam: Present alert and oriented X3 Skin Skin exam: Present intact and warm OBJ DATA Labs CBC & Chem 7: 06/04/22 18:12 06/04/22 18:12 Meds: Medications Acetaminophen (Acetaminophen 325 Mg Tablet) 650 mg PO Q6HP PRN; Protocol PRN Reason: Per Pain Protocol/Fever > 101 Albuterol/Ipratropium (Ipratropium/Albuterol 3 Ml Ampul.Neb) 3 ml NEB Q4HP PRN PRN Reason: Shortness Of Breath Docusate Sodium (Docusate Sodium 100 Mg Capsule) 100 mg PO BID [facility] Last Admin: 06/08/22 09:35 Dose: Not Given Fentanyl (Fentanyl 25 Mcg Patch) 25 mcg TOPICAL Q72H [facility] Last Admin: 06/07/22 10:45 Dose: 25 mcg Glucose Oxid/Lactoperoxid/Muramidas (Lactoperoxi/Gluc Oxid/Pot Thio 1 Each Gel..Ea.) 1 each TOPICAL PRN PRN PRN Reason: Dry Mouth Hydromorphone HCl (Hydromorphone 1 Mg/Ml Syringe) 0.5 - 2 mg IV Q2HP PRN; Protocol PRN Reason: Per Pain Protocol Lorazepam (Lorazepam 2 Mg/Ml Vial) 0 mg IV Q1HP PRN; Protocol PRN Reason: ANXIETY/SEDATION Morphine Sulfate (Morphine 4 Mg/Ml Vial) 4 mg NEB Q4HP PRN PRN Reason: Shortness Of Breath Morphine Sulfate (Morphine 20 Mg/Ml Oral.Conc) 5 - 10 mg SL Q2HP PRN; Protocol PRN Reason: Per Pain Protocol Last Admin: 06/07/22 13:17 Dose: 10 mg Ondansetron HCl (Ondansetron 4 Mg/2 Ml Vial) 4 mg IV Q4HP PRN PRN Reason: Nausea And Vomiting Ondansetron HCl (Ondansetron 4 Mg Odt Tablet) 4 mg SL Q4HP PRN; Protocol PRN Reason: Nausea And Vomiting Polyethylene Glycol (Polyethylene Glycol 3350 17 Gm Packet) 17 gm PO DAILYP PRN PRN Reason: Constipation Senna (Sennosides 1 Tablet) 2 tab PO DAILYP PRN PRN Reason: Constipation Sodium Chloride (0.9 % Sodium Chloride 10 Ml Syringe) 10 ml IV Q8 [facility] Last Admin: 06/08/22 07:16 Dose: Not Given A/P Assessment and plan (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 05/27/2020 (4) Acute alteration in mental status: Status: Acute (5) Anemia: Status: Acute Qualifiers: Anemia type: other cause Other causes of anemia: acute posthemorrhagic Qualified Code(s): D62 - Acute posthemorrhagic anemia (6) Hypertension, essential: Status: Chronic Narrative A/P Narrative: Continue comfort care measures only while awaiting inpatient hospice placement Time Spent With Patient Time: Total time spent is greater than 50% in coordination of care (as documented) at patient's floor/unit and/or counseling patient: Total time spent with greater than 50% in coordination of care (as documented) at patient's floor/unit and/or counseling patient:: 25 - 35 minutes QUALITY VTE Deep Vein Thrombosis/Pulmonary Embolism Present on Admission: No
[2022-06-09] MEDS: 0.9 % SODIUM CHLORIDE 10 ML SYRINGE IV SCH ×3 (00:32→13:25)
[2022-06-09] MEDS: DOCUSATE SODIUM 100 MG CAPSULE PO SCH ×3 (00:32→21:35)
--- NOTE | 2022-06-09 11:38 | Internal Med Progress Note ---
SUBJECTIVE Subjective Patient information: Note initiated : 06/09/22 at 11:37 am Service Date, if different from initiated Date: [] Patient: Emerson Moreno 77 y/o M admitted on 06/05/22 for Failure to thrive. Chief Complaint: [] Interval history: Mr. Moreno is a 77 year old M Presents to the ED with recent stupor declining in the home. APS is involved. Patient has [facility] involved in his care. APS unable to contact sister. 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 EMS found to young people smoking meth in the home that ran out when they arriv ed. Patient was found to be covered in stool. Patient not speaking. Patient saturations 87% on room air. Chest x-ray showing large left pleural effusion. Patient has a history of prostate cancer and metastatic disease to the liver as well as the pelvis lumbar spine and thoracic spine. He has declined treatment and thus the reason for being on hospice. He also has a history of severe cardiomyopathy severe vascular disease and COPD. History is obtained from chart as patient does not communicate sometimes speaks unintelligibly 06/06 Patient sleeping but awakens to touch. Nonverbal. 06/07 No changes overnight. Patient little more talkative to staff overnight but not to me this morning. Review of system: Unable to obtain given patient nonverbal status 06/08: No major overnight events. Continue comfort care measures. We will work with child protective services social worker medical case manager for inpatient hospice placement. 06/09: No major overnight events. Continue comfort care measures. We will work with child protective services social worker medical case manager for inpatient hospice placement. Pertinent ROS: Not obtained due to clinical situations Constitutional Vitals: Vital Signs Temp Pulse Resp BP Pulse Ox O2 Del Method O2 Flow Rate 37.5 C H 84 14 130/68 91 2 06/09/22 06:56 06/09/22 06:56 06/09/22 06:56 06/09/22 06:56 06/09/22 06:56 06/09/22 06:56 06/09/22 08:41 Period Temp Pulse Resp BP Sys/Guerra Pulse Ox O2 Del Method O2 Flow Rate Last 24 Hr 36.6 C-37.5 C 84-84 14-16 97-130/55-68 90-91 Nasal Cannula- Nasal Cannula 2-2 Intake and Output 06/08/22 06/09/22 06/09/22 21:59 05:59 13:59 Intake Total 200 Output Total 2 1 1 Balance -2 199 -1 Weight 40.37 kg Intake & Output: Intake & Output 06/08/22 06/09/22 06/09/22 21:59 05:59 13:59 Intake Total 200 Output Total 2 1 1 Balance -2 199 -1 Weight 40.37 kg Intake: Oral 200 Output: # of times incontinent of urine 2 1 1 Other: Meal Dinner Percent of Meal Consumed 5 Bites Feeding Ability Total Assistance General appearance: thin Exam: non verbal Head Head exam: Present atraumatic and normal inspection Eye Eye exam: Present normal appearance ENT ENT exam: Present mucous membranes moist, normal exam and normal external ear exam Neck Neck exam: Present normal inspection Respiratory Respiratory exam: Present normal respiratory exam Cardiovascular Cardiovascular exam: Present normal rate and rhythm GI/Abdominal GI/Abdominal exam: Present normal bowel sounds Back Exam Back exam: Present normal inspection Neurological Exam Neurological exam: Present altered; Absent alert or oriented X3 Additional comments: non verbal Skin Skin exam: Present intact and warm OBJ DATA Labs CBC & Chem 7: 06/04/22 18:12 06/04/22 18:12 Meds: Medications Acetaminophen (Acetaminophen 325 Mg Tablet) 650 mg PO Q6HP PRN; Protocol PRN Reason: Per Pain Protocol/Fever > 101 Albuterol/Ipratropium (Ipratropium/Albuterol 3 Ml Ampul.Neb) 3 ml NEB Q4HP PRN PRN Reason: Shortness Of Breath Docusate Sodium (Docusate Sodium 100 Mg Capsule) 100 mg PO BID [facility] Last Admin: 06/09/22 10:27 Dose: Not Given Fentanyl (Fentanyl 25 Mcg Patch) 25 mcg TOPICAL Q72H [facility] Last Admin: 06/07/22 10:45 Dose: 25 mcg Glucose Oxid/Lactoperoxid/Muramidas (Lactoperoxi/Gluc Oxid/Pot Thio 1 Each Gel..Ea.) 1 each TOPICAL PRN PRN PRN Reason: Dry Mouth Hydromorphone HCl (Hydromorphone 1 Mg/Ml Syringe) 0.5 - 2 mg IV Q2HP PRN; Protocol PRN Reason: Per Pain Protocol Lorazepam (Lorazepam 2 Mg/Ml Vial) 0 mg IV Q1HP PRN; Protocol PRN Reason: ANXIETY/SEDATION Morphine Sulfate (Morphine 4 Mg/Ml Vial) 4 mg NEB Q4HP PRN PRN Reason: Shortness Of Breath Morphine Sulfate (Morphine 20 Mg/Ml Oral.Conc) 5 - 10 mg SL Q2HP PRN; Protocol PRN Reason: Per Pain Protocol Last Admin: 06/07/22 13:17 Dose: 10 mg Ondansetron HCl (Ondansetron 4 Mg/2 Ml Vial) 4 mg IV Q4HP PRN PRN Reason: Nausea And Vomiting Ondansetron HCl (Ondansetron 4 Mg Odt Tablet) 4 mg SL Q4HP PRN; Protocol PRN Reason: Nausea And Vomiting Polyethylene Glycol (Polyethylene Glycol 3350 17 Gm Packet) 17 gm PO DAILYP PRN PRN Reason: Constipation Senna (Sennosides 1 Tablet) 2 tab PO DAILYP PRN PRN Reason: Constipation Sodium Chloride (0.9 % Sodium Chloride 10 Ml Syringe) 10 ml IV Q8 [facility] Last Admin: 06/09/22 05:23 Dose: Not Given A/P Assessment and plan (1) COPD (chronic obstructive pulmonary disease) with emphysema: Status: Chronic (2) History of prostate cancer: Status: Chronic (3) terminologist (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 05/27/2020 (4) Acute alteration in mental status: Status: Acute (5) Anemia: Status: Acute Qualifiers: Anemia type: other cause Other causes of anemia: acute posthemorrhagic Qualified Code(s): D62 - Acute posthemorrhagic anemia (6) Hypertension, essential: Status: Chronic Narrative A/P Narrative: Continue comfort care measures only while awaiting inpatient hospice placement Time Spent With Patient Time: Total time spent is greater than 50% in coordination of care (as documented) at patient's floor/unit and/or counseling patient: Total time spent with greater than 50% in coordination of care (as documented) at patient's floor/unit and/or counseling patient:: 25 - 35 minutes QUALITY VTE Deep Vein Thrombosis/Pulmonary Embolism Present on Admission: No
[2022-06-10] MEDS: DOCUSATE SODIUM 100 MG CAPSULE PO SCH ×2 (10:03→20:20)
[2022-06-10] MEDS: fentaNYL 25 MCG PATCH TOPICAL SCH (10:04)
--- NOTE | 2022-06-10 10:12 | Internal Med Progress Note ---
SUBJECTIVE Subjective Patient information: Note initiated : 06/10/22 at 10:11 am Service Date, if different from initiated Date: [] Patient: Emerson Moreno 77 y/o M admitted on 06/05/22 for Failure to thrive. Chief Complaint: [] Interval history: Mr. Moreno is a 77 year old M Presents to the ED with recent stupor declining in the home. APS is involved. Patient has [facility] involved in his care. APS unable to contact sister. 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 EMS found to young people smoking meth in the home that ran out when they arriv ed. Patient was found to be covered in stool. Patient not speaking. Patient saturations 87% on room air. Chest x-ray showing large left pleural effusion. Patient has a history of prostate cancer and metastatic disease to the liver as well as the pelvis lumbar spine and thoracic spine. He has declined treatment and thus the reason for being on hospice. He also has a history of severe cardiomyopathy severe vascular disease and COPD. History is obtained from chart as patient does not communicate sometimes speaks unintelligibly 06/06 Patient sleeping but awakens to touch. Nonverbal. 06/07 No changes overnight. Patient little more talkative to staff overnight but not to me this morning. Review of system: Unable to obtain given patient nonverbal status 06/08: No major overnight events. Continue comfort care measures. We will work with pediatric social worker bilingual case manager for inpatient hospice placement. 06/09: No major overnight events. Continue comfort care measures. We will work with pediatric social worker bilingual case manager for inpatient hospice placement. 06/10: No major overnight events. Continue comfort care measures. We will work with pediatric social worker bilingual case manager for inpatient hospice placement. Constitutional Vitals: Vital Signs Temp Pulse Resp BP Pulse Ox O2 Del Method O2 Flow Rate 36.4 C 88 20 94/60 91 2 06/09/22 18:40 06/10/22 03:40 06/09/22 18:40 06/09/22 18:40 06/10/22 03:40 06/10/22 07:35 06/09/22 08:41 Period Temp Pulse Resp BP Sys/Guerra Pulse Ox O2 Del Method O2 Flow Rate Last 24 Hr 36.4 C 88-94 20 94/60 91 Room Air-Room Air Intake and Output 06/09/22 06/10/22 06/10/22 21:59 05:59 13:59 Intake Total 160 250 Output Total 101 125 Balance 59 125 Weight 41.095 kg Intake & Output: Intake & Output 06/09/22 06/10/22 06/10/22 21:59 05:59 13:59 Intake Total 160 250 Output Total 101 125 Balance 59 125 Weight 41.095 kg Intake: Oral 160 250 Output: Void Amount 100 125 # of times incontinent of urine 1 Other: Meal Dinner Ice cream 1 cup Breakfast Percent of Meal Consumed 0% 100% bites Feeding Ability Independent Total Assistance Urine Appearance Clear Urine Color Tea Colored Exam: non verbal Head Head exam: Present atraumatic and normal inspection Eye Eye exam: Present normal appearance ENT ENT exam: Present mucous membranes moist, normal exam and normal external ear exam Neck Neck exam: Present normal inspection Respiratory Respiratory exam: Present normal respiratory exam Cardiovascular Cardiovascular exam: Present normal rate and rhythm GI/Abdominal GI/Abdominal exam: Present normal bowel sounds Back Exam Back exam: Present normal inspection Neurological Exam Neurological exam: Present alert and oriented X3 Skin Skin exam: Present intact and warm OBJ DATA Labs CBC & Chem 7: 06/04/22 18:12 06/04/22 18:12 Meds: Medications Acetaminophen (Acetaminophen 325 Mg Tablet) 650 mg PO Q6HP PRN; Protocol PRN Reason: Per Pain Protocol/Fever > 101 Albuterol/Ipratropium (Ipratropium/Albuterol 3 Ml Ampul.Neb) 3 ml NEB Q4HP PRN PRN Reason: Shortness Of Breath Docusate Sodium (Docusate Sodium 100 Mg Capsule) 100 mg PO BID [facility] Last Admin: 06/10/22 10:03 Dose: 100 mg Fentanyl (Fentanyl 25 Mcg Patch) 25 mcg TOPICAL Q72H [facility] Last Admin: 06/10/22 10:04 Dose: 25 mcg Glucose Oxid/Lactoperoxid/Muramidas (Lactoperoxi/Gluc Oxid/Pot Thio 1 Each Gel..Ea.) 1 each TOPICAL PRN PRN PRN Reason: Dry Mouth Hydromorphone HCl (Hydromorphone 1 Mg/Ml Syringe) 0.5 - 2 mg IV Q2HP PRN; Protocol PRN Reason: Per Pain Protocol Lorazepam (Lorazepam 2 Mg/Ml Vial) 0 mg IV Q1HP PRN; Protocol PRN Reason: ANXIETY/SEDATION Morphine Sulfate (Morphine 4 Mg/Ml Vial) 4 mg NEB Q4HP PRN PRN Reason: Shortness Of Breath Morphine Sulfate (Morphine 20 Mg/Ml Oral.Conc) 5 - 10 mg SL Q2HP PRN; Protocol PRN Reason: Per Pain Protocol Last Admin: 06/07/22 13:17 Dose: 10 mg Ondansetron HCl (Ondansetron 4 Mg/2 Ml Vial) 4 mg IV Q4HP PRN PRN Reason: Nausea And Vomiting Ondansetron HCl (Ondansetron 4 Mg Odt Tablet) 4 mg SL Q4HP PRN; Protocol PRN Reason: Nausea And Vomiting Polyethylene Glycol (Polyethylene Glycol 3350 17 Gm Packet) 17 gm PO DAILYP PRN PRN Reason: Constipation Last Admin: 06/10/22 10:04 Dose: 17 gm Senna (Sennosides 1 Tablet) 2 tab PO DAILYP PRN PRN Reason: Constipation A/P Assessment and plan (1) COPD (chronic obstructive pulmonary disease) with emphysema: Status: Chronic (2) History of prostate cancer: Status: Chronic (3) snf (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 05/27/2020 (4) Acute alteration in mental status: Status: Acute (5) Anemia: Status: Acute Qualifiers: Anemia type: other cause Other causes of anemia: acute posthemorrhagic Qualified Code(s): D62 - Acute posthemorrhagic anemia (6) Hypertension, essential: Status: Chronic Narrative A/P Narrative: Continue comfort care measures only while awaiting inpatient hospice placement Time Spent With Patient Time: Total time spent is greater than 50% in coordination of care (as documented) at patient's floor/unit and/or counseling patient: Total time spent with greater than 50% in coordination of care (as documented) at patient's floor/unit and/or counseling patient:: 25 - 35 minutes QUALITY VTE Deep Vein Thrombosis/Pulmonary Embolism Present on Admission: No
[2022-06-11] MEDS: DOCUSATE SODIUM 100 MG CAPSULE PO SCH ×2 (13:37→20:55)
--- NOTE | 2022-06-11 17:33 | Internal Med Progress Note ---
SUBJECTIVE Subjective Patient information: Note initiated : 06/11/22 at 5:33 pm Service Date, if different from initiated Date: [] Patient: Emerson Moreno 77 y/o M admitted on 06/05/22 for Failure to thrive. Chief Complaint: [] Interval history: Mr. Moreno is a 77 year old M Presents to the ED with recent stupor declining in the home. APS is involved. Patient has [facility] involved in his care. APS unable to contact sister. Rehabilitation Counselor is out of town. EMS found to young people smoking meth in the home that ran out when they arrive d. Patient was found to be covered in stool. Patient not speaking. Patient saturations 87% on room air. Chest x-ray showing large left pleural effusion. Patient has a history of prostate cancer and metastatic disease to the liver as well as the pelvis lumbar spine and thoracic spine. He has declined treatment and thus the reason for being on hospice. He also has a history of severe cardiomyopathy severe vascular disease and COPD. History is obtained from chart as patient does not communicate sometimes speaks unintelligibly 06/06 Patient sleeping but awakens to touch. Nonverbal. 06/07 No changes overnight. Patient little more talkative to staff overnight but not to me this morning. Review of system: Unable to obtain given patient nonverbal status 06/08: No major overnight events. Continue comfort care measures. We will work with bilingual social worker supervisor case loading for inpatient hospice placement. 06/09: No major overnight events. Continue comfort care measures. We will work with bilingual social worker supervisor case loading for inpatient hospice placement. 06/10: No major overnight events. Continue comfort care measures. We will work with bilingual social worker supervisor case loading for inpatient hospice placement. 06/11: No major overnight events. Continue comfort care measures. We will work with bilingual social worker supervisor case loading for inpatient hospice placement. Constitutional Vitals: Vital Signs Temp Pulse Resp BP Pulse Ox O2 Del Method O2 Flow Rate 36.3 C 84 22 126/61 91 2 06/11/22 16:39 06/11/22 16:39 06/11/22 16:39 06/11/22 16:39 06/11/22 16:39 06/11/22 08:30 06/09/22 08:41 Period Temp Pulse Resp BP Sys/Guerra Pulse Ox O2 Del Method O2 Flow Rate Last 24 Hr 36.3 C-36.7 C 84-91 20-22 126-132/61-94 90-91 Room Air-Room Air Intake and Output 06/11/22 06/11/22 06/11/22 05:59 13:59 21:59 Intake Total 0 Output Total 1 Balance 0 -1 Intake & Output: Intake & Output 06/11/22 06/11/22 06/11/22 05:59 13:59 21:59 Intake Total 0 Output Total 1 Balance 0 -1 Intake: Oral 0 Output: # of times incontinent of urine 1 Other: Meal Lunch Percent of Meal Consumed sips Feeding Ability Total Assistance Stool Size Small Stool Color Brown Stool Consistency Soft Formed # Voids 1 # of times incontinent of 1 Bowels Exam: non verbal Head Head exam: Present atraumatic and normal inspection Eye Eye exam: Present normal appearance ENT ENT exam: Present mucous membranes moist, normal exam and normal external ear exam Neck Neck exam: Present normal inspection Respiratory Respiratory exam: Present normal respiratory exam Cardiovascular Cardiovascular exam: Present normal rate and rhythm GI/Abdominal GI/Abdominal exam: Present normal bowel sounds Back Exam Back exam: Present normal inspection Neurological Exam Neurological exam: Present alert and oriented X3 Skin Skin exam: Present intact and warm OBJ DATA Labs CBC & Chem 7: 06/04/22 18:12 06/04/22 18:12 Meds: Medications Acetaminophen (Acetaminophen 325 Mg Tablet) 650 mg PO Q6HP PRN; Protocol PRN Reason: Per Pain Protocol/Fever > 101 Albuterol/Ipratropium (Ipratropium/Albuterol 3 Ml Ampul.Neb) 3 ml NEB Q4HP PRN PRN Reason: Shortness Of Breath Docusate Sodium (Docusate Sodium 100 Mg Capsule) 100 mg PO BID [facility] Last Admin: 06/11/22 13:37 Dose: Not Given Fentanyl (Fentanyl 25 Mcg Patch) 25 mcg TOPICAL Q72H [facility] Last Admin: 06/10/22 10:04 Dose: 25 mcg Glucose Oxid/Lactoperoxid/Muramidas (Lactoperoxi/Gluc Oxid/Pot Thio 1 Each Gel..Ea.) 1 each TOPICAL PRN PRN PRN Reason: Dry Mouth Hydromorphone HCl (Hydromorphone 1 Mg/Ml Syringe) 0.5 - 2 mg IV Q2HP PRN; Protocol PRN Reason: Per Pain Protocol Lorazepam (Lorazepam 2 Mg/Ml Vial) 0 mg IV Q1HP PRN; Protocol PRN Reason: ANXIETY/SEDATION Morphine Sulfate (Morphine 4 Mg/Ml Vial) 4 mg NEB Q4HP PRN PRN Reason: Shortness Of Breath Morphine Sulfate (Morphine 20 Mg/Ml Oral.Conc) 5 - 10 mg SL Q2HP PRN; Protocol PRN Reason: Per Pain Protocol Last Admin: 06/07/22 13:17 Dose: 10 mg Ondansetron HCl (Ondansetron 4 Mg/2 Ml Vial) 4 mg IV Q4HP PRN PRN Reason: Nausea And Vomiting Ondansetron HCl (Ondansetron 4 Mg Odt Tablet) 4 mg SL Q4HP PRN; Protocol PRN Reason: Nausea And Vomiting Polyethylene Glycol (Polyethylene Glycol 3350 17 Gm Packet) 17 gm PO DAILYP PRN PRN Reason: Constipation Last Admin: 06/10/22 10:04 Dose: 17 gm Senna (Sennosides 1 Tablet) 2 tab PO DAILYP PRN PRN Reason: Constipation A/P Assessment and plan (1) COPD (chronic obstructive pulmonary disease) with emphysema: Status: Chronic (2) History of prostate cancer: Status: Chronic (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 05/27/2020 (4) Acute alteration in mental status: Status: Acute (5) Anemia: Status: Acute Qualifiers: Anemia type: other cause Other causes of anemia: acute posthemorrhagic Qualified Code(s): D62 - Acute posthemorrhagic anemia (6) Hypertension, essential: Status: Chronic Narrative A/P Narrative: Continue comfort care measures only while awaiting inpatient hospice placement Time Spent With Patient Time: Total time spent is greater than 50% in coordination of care (as documented) at patient's floor/unit and/or counseling patient: Total time spent with greater than 50% in coordination of care (as documented) at patient's floor/unit and/or counseling patient:: 25 - 35 minutes QUALITY VTE Deep Vein Thrombosis/Pulmonary Embolism Present on Admission: No
[2022-06-12] MEDS: DOCUSATE SODIUM 100 MG CAPSULE PO SCH ×2 (10:58→20:20)
--- NOTE | 2022-06-12 11:06 | Internal Med Progress Note ---
SUBJECTIVE Subjective Patient information: Note initiated : 06/12/22 at 11:05 am Service Date, if different from initiated Date: [] Patient: Emerson Moreno 77 y/o M admitted on 06/05/22 for Failure to thrive. Chief Complaint: [] Interval history: Mr. Moreno is a 77 year old M Presents to the ED with recent stupor declining in the home. APS is involved. Patient has [facility] involved in his care. APS unable to contact sister. [employer] is out of town. EMS found to young people smoking meth in the home that ran out when they arriv ed. Patient was found to be covered in stool. Patient not speaking. Patient saturations 87% on room air. Chest x-ray showing large left pleural effusion. Patient has a history of prostate cancer and metastatic disease to the liver as well as the pelvis lumbar spine and thoracic spine. He has declined treatment and thus the reason for being on hospice. He also has a history of severe cardiomyopathy severe vascular disease and COPD. History is obtained from chart as patient does not communicate sometimes speaks unintelligibly 06/06 Patient sleeping but awakens to touch. Nonverbal. 06/07 No changes overnight. Patient little more talkative to staff overnight but not to me this morning. Review of system: Unable to obtain given patient nonverbal status 06/08: No major overnight events. Continue comfort care measures. We will work with social scientist special education case manager for inpatient hospice placement. 06/09: No major overnight events. Continue comfort care measures. We will work with social scientist special education case manager for inpatient hospice placement. 06/10: No major overnight events. Continue comfort care measures. We will work with social scientist special education case manager for inpatient hospice placement. 06/11: No major overnight events. Continue comfort care measures. We will work with social scientist special education case manager for inpatient hospice placement. 06/12: No major overnight events. Continue comfort care measures. We will work with social scientist special education case manager for inpatient hospice placement. Constitutional Vitals: Vital Signs Temp Pulse Resp BP Pulse Ox O2 Del Method O2 Flow Rate 36.0 C L 80 14 101/65 93 2 06/12/22 07:14 06/12/22 07:14 06/12/22 07:14 06/12/22 07:14 06/12/22 07:14 06/12/22 07:14 06/09/22 08:41 Period Temp Pulse Resp BP Sys/Guerra Pulse Ox O2 Del Method O2 Flow Rate Last 24 Hr 36.0 C-36.8 C 80-84 14-22 100-126/50-65 91-93 Room Air-Room Air Intake and Output 06/11/22 06/12/22 06/12/22 21:59 05:59 13:59 Intake Total 480 Balance 480 Weight 42.184 kg Intake & Output: Intake & Output 06/11/22 06/12/22 06/12/22 21:59 05:59 13:59 Intake Total 480 Balance 480 Weight 42.184 kg Intake: Oral 480 Other: Meal ice cream Breakfast Percent of Meal Consumed 25% sips Feeding Ability Total Assistance Total Assistance Stool Size Small Large Stool Color Brown Brown Stool Consistency Soft Soft Formed # Voids 1 # of times incontinent of 1 1 Bowels Exam: non verbal Head Head exam: Present atraumatic and normal inspection Eye Eye exam: Present normal appearance ENT ENT exam: Present mucous membranes moist, normal exam and normal external ear exam Neck Neck exam: Present normal inspection Respiratory Respiratory exam: Present normal respiratory exam Cardiovascular Cardiovascular exam: Present normal rate and rhythm GI/Abdominal GI/Abdominal exam: Present normal bowel sounds Back Exam Back exam: Present normal inspection Neurological Exam Neurological exam: Present alert and oriented X3 Skin Skin exam: Present intact and warm OBJ DATA Labs CBC & Chem 7: 06/04/22 18:12 06/04/22 18:12 Meds: Medications Acetaminophen (Acetaminophen 325 Mg Tablet) 650 mg PO Q6HP PRN; Protocol PRN Reason: Per Pain Protocol/Fever > 101 Albuterol/Ipratropium (Ipratropium/Albuterol 3 Ml Ampul.Neb) 3 ml NEB Q4HP PRN PRN Reason: Shortness Of Breath Docusate Sodium (Docusate Sodium 100 Mg Capsule) 100 mg PO BID [facility] Last Admin: 06/12/22 10:58 Dose: Not Given Fentanyl (Fentanyl 25 Mcg Patch) 25 mcg TOPICAL Q72H [facility] Last Admin: 06/10/22 10:04 Dose: 25 mcg Glucose Oxid/Lactoperoxid/Muramidas (Lactoperoxi/Gluc Oxid/Pot Thio 1 Each Gel. .Ea.) 1 each TOPICAL PRN PRN PRN Reason: Dry Mouth Hydromorphone HCl (Hydromorphone 1 Mg/Ml Syringe) 0.5 - 2 mg IV Q2HP PRN; Protocol PRN Reason: Per Pain Protocol Lorazepam (Lorazepam 2 Mg/Ml Vial) 0 mg IV Q1HP PRN; Protocol PRN Reason: ANXIETY/SEDATION Morphine Sulfate (Morphine 4 Mg/Ml Vial) 4 mg NEB Q4HP PRN PRN Reason: Shortness Of Breath Morphine Sulfate (Morphine 20 Mg/Ml Oral.Conc) 5 - 10 mg SL Q2HP PRN; Protocol PRN Reason: Per Pain Protocol Last Admin: 06/07/22 13:17 Dose: 10 mg Ondansetron HCl (Ondansetron 4 Mg/2 Ml Vial) 4 mg IV Q4HP PRN PRN Reason: Nausea And Vomiting Ondansetron HCl (Ondansetron 4 Mg Odt Tablet) 4 mg SL Q4HP PRN; Protocol PRN Reason: Nausea And Vomiting Polyethylene Glycol (Polyethylene Glycol 3350 17 Gm Packet) 17 gm PO DAILYP PRN PRN Reason: Constipation Last Admin: 06/10/22 10:04 Dose: 17 gm Senna (Sennosides 1 Tablet) 2 tab PO DAILYP PRN PRN Reason: Constipation A/P Assessment and plan (1) COPD (chronic obstructive pulmonary disease) with emphysema: Status: Chronic (2) History of prostate cancer: Status: Chronic (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 05/27/2020 (4) Acute alteration in mental status: Status: Acute (5) Anemia: Status: Acute Qualifiers: Anemia type: other cause Other causes of anemia: acute posthemorrhagic Qualified Code(s): D62 - Acute posthemorrhagic anemia (6) Hypertension, essential: Status: Chronic Narrative A/P Narrative: Continue comfort care measures only while awaiting inpatient hospice placement Time Spent With Patient Time: Total time spent is greater than 50% in coordination of care (as documented) at patient's floor/unit and/or counseling patient: Total time spent with greater than 50% in coordination of care (as documented) at patient's floor/unit and/or counseling patient:: 25 - 35 minutes QUALITY VTE Deep Vein Thrombosis/Pulmonary Embolism Present on Admission: No
[2022-06-13] MEDS: morphine 20 MG/ML ORAL.CONC SL PRN ×2 (09:46→15:03)
[2022-06-13] MEDS: DOCUSATE SODIUM 100 MG CAPSULE PO SCH ×2 (09:58→22:32)
[2022-06-13] MEDS: fentaNYL 25 MCG PATCH TOPICAL SCH (11:39)
[2022-06-13] MEDS ORDERED: LORazepam 1 MG TABLET SL PRN (15:20)
[2022-06-14] MEDS: morphine 20 MG/ML ORAL.CONC SL PRN ×2 (00:45→06:16)
[2022-06-14] MEDS: DOCUSATE SODIUM 100 MG CAPSULE PO SCH ×2 (08:02→23:10)
--- NOTE | 2022-06-14 11:36 | Internal Med Progress Note ---
SUBJECTIVE Subjective Patient information: Note initiated : 06/14/22 at 11:35 am Service Date, if different from initiated Date: [] Patient: Emerson Moreno 77 y/o M admitted on 06/05/22 for Failure to thrive. Chief Complaint: [] Interval history: Mr. Moreno is a 77 year old M Presents to the ED with recent stupor declining in the home. APS is involved. Patient has [facility] involved in his care. APS unable to contact sister. [employer] is out of town. EMS found to young people smoking meth in the home that ran out when they arriv ed. Patient was found to be covered in stool. Patient not speaking. Patient saturations 87% on room air. Chest x-ray showing large left pleural effusion. Patient has a history of prostate cancer and metastatic disease to the liver as well as the pelvis lumbar spine and thoracic spine. He has declined treatment and thus the reason for being on hospice. He also has a history of severe cardiomyopathy severe vascular disease and COPD. History is obtained from chart as patient does not communicate sometimes speaks unintelligibly 06/06 Patient sleeping but awakens to touch. Nonverbal. 06/07 No changes overnight. Patient little more talkative to staff overnight but not to me this morning. Review of system: Unable to obtain given patient nonverbal status 06/08: No major overnight events. Continue comfort care measures. We will work with social work case manager case manager specialist for inpatient hospice placement. 06/09: No major overnight events. Continue comfort care measures. We will work with social work case manager case manager specialist for inpatient hospice placement. 06/10: No major overnight events. Continue comfort care measures. We will work with social work case manager case manager specialist for inpatient hospice placement. 06/11: No major overnight events. Continue comfort care measures. We will work with social work case manager case manager specialist for inpatient hospice placement. 06/12: No major overnight events. Continue comfort care measures. We will work with social work case manager case manager specialist for inpatient hospice placement. 06/14: No major overnight events. Continue comfort care measures. We will work with social work case manager case manager specialist for inpatient hospice placement. Constitutional Vitals: Vital Signs Temp Pulse Resp BP Pulse Ox O2 Del Method O2 Flow Rate 36.2 C 82 14 77/56 90 2 06/14/22 08:00 06/14/22 08:00 06/14/22 08:00 06/14/22 08:00 06/13/22 20:00 06/13/22 20:00 06/13/22 20:00 Period Temp Pulse Resp BP Sys/Guerra Pulse Ox O2 Del Method O2 Flow Rate Last 24 Hr 36.2 C-37.0 C 77-82 12-16 77-78/45-56 90 Nasal Cannula 2 Intake and Output 06/13/22 06/14/22 06/14/22 21:59 05:59 13:59 Intake Total 0 Output Total 1 Balance 0 -1 Weight 41.277 kg Intake & Output: Intake & Output 06/13/22 06/14/22 06/14/22 21:59 05:59 13:59 Intake Total 0 Output Total 1 Balance 0 -1 Weight 41.277 kg Intake: Oral 0 Output: # of times incontinent of urine 1 Other: # Voids 1 Exam: non verbal Head Head exam: Present atraumatic and normal inspection Eye Eye exam: Present normal appearance ENT ENT exam: Present mucous membranes moist, normal exam and normal external ear exam Neck Neck exam: Present normal inspection Respiratory Respiratory exam: Present normal respiratory exam Cardiovascular Cardiovascular exam: Present normal rate and rhythm GI/Abdominal GI/Abdominal exam: Present normal bowel sounds Back Exam Back exam: Present normal inspection Neurological Exam Neurological exam: Present alert and oriented X3 Skin Skin exam: Present intact and warm OBJ DATA Labs CBC & Chem 7: 06/04/22 18:12 06/04/22 18:12 Meds: Medications Acetaminophen (Acetaminophen 325 Mg Tablet) 650 mg PO Q6HP PRN; Protocol PRN Reason: Per Pain Protocol/Fever > 101 Albuterol/Ipratropium (Ipratropium/Albuterol 3 Ml Ampul.Neb) 3 ml NEB Q4HP PRN PRN Reason: Shortness Of Breath Docusate Sodium (Docusate Sodium 100 Mg Capsule) 100 mg PO BID [facility] Last Admin: 06/14/22 08:02 Dose: Not Given Fentanyl (Fentanyl 25 Mcg Patch) 25 mcg TOPICAL Q72H [facility] Last Admin: 06/13/22 11:39 Dose: 25 mcg Glucose Oxid/Lactoperoxid/Muramidas (Lactoperoxi/Gluc Oxid/Pot Thio 1 Each Gel..Ea.) 1 each TOPICAL PRN PRN PRN Reason: Dry Mouth Hydromorphone HCl (Hydromorphone 1 Mg/Ml Syringe) 0.5 - 2 mg IV Q2HP PRN; Protocol PRN Reason: Per Pain Protocol Lorazepam (Lorazepam 1 Mg Tablet) 1 mg SL Q1HP PRN PRN Reason: Anxiety Morphine Sulfate (Morphine 4 Mg/Ml Vial) 4 mg NEB Q4HP PRN PRN Reason: Shortness Of Breath Morphine Sulfate (Morphine 20 Mg/Ml Oral.Conc) 5 - 10 mg SL Q2HP PRN; Protocol PRN Reason: Per Pain Protocol Last Admin: 06/14/22 06:16 Dose: 5 mg Ondansetron HCl (Ondansetron 4 Mg Odt Tablet) 4 mg SL Q4HP PRN; Protocol PRN Reason: Nausea And Vomiting Polyethylene Glycol (Polyethylene Glycol 3350 17 Gm Packet) 17 gm PO DAILYP PRN PRN Reason: Constipation Last Admin: 06/10/22 10:04 Dose: 17 gm Senna (Sennosides 1 Tablet) 2 tab PO DAILYP PRN PRN Reason: Constipation A/P Assessment and plan (1) COPD (chronic obstructive pulmonary disease) with emphysema: Status: Chronic (2) History of prostate cancer: Status: Chronic (3) long-term (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 05/27/2020 (4) Acute alteration in mental status: Status: Acute (5) Anemia: Status: Acute Qualifiers: Anemia type: other cause Other causes of anemia: acute posthemorrhagic Qualified Code(s): D62 - Acute posthemorrhagic anemia (6) Hypertension, essential: Status: Chronic Narrative A/P Narrative: Continue comfort care measures only while awaiting inpatient hospice placement Time Spent With Patient Time: Total time spent is greater than 50% in coordination of care (as documented) at patient's floor/unit and/or counseling patient: Total time spent with greater than 50% in coordination of care (as documented) at patient's floor/unit and/or counseling patient:: 25 - 35 minutes QUALITY VTE Deep Vein Thrombosis/Pulmonary Embolism Present on Admission: No
[2022-06-15] MEDS: morphine 20 MG/ML ORAL.CONC SL PRN ×2 (00:09→05:59)
[2022-06-15] MEDS: DOCUSATE SODIUM 100 MG CAPSULE PO SCH (08:42)
--- NOTE | 2022-06-15 12:36 | Internal Med Progress Note ---
SUBJECTIVE Subjective Patient information: Note initiated : 06/15/22 at 12:34 pm Service Date, if different from initiated Date: [] Patient: Emerson Moreno a 77 y/o M admitted on 06/05/22 for Failure to thrive. Chief Complaint: [Failure to thrive] Interval history: Mr. Moreno is a 77 year old M Presents to the ED with recent stupor declining in the home. APS is involved. Patient has [facility] involved in his care. APS unable to contact sister. [employer] is out of town. EMS found to young people smoking meth in the home that ran out when they arrived. Patient was found to be covered in stool. Patient not speaking. Patient saturations 87% on room air. Chest x-ray showing large left pleural effusion. Patient has a history of prostate cancer and metastatic disease to the liver as well as the pelvis lumbar spine and thoracic spine. He has declined treatment and thus the reason for being on hospice. He also has a history of severe cardiomyopathy severe vascular disease and COPD. History is obtained from chart as patient does not communicate sometimes speaks unintelligibly 06/06 Patient sleeping but awakens to touch. Nonverbal. 06/07 No changes overnight. Patient little more talkative to staff overnight but not to me this morning. Review of system: Unable to obtain given patient nonverbal status 06/08: No major overnight events. Continue comfort care measures. We will work with public health social worker foster care case manager for inpatient hospice placement. 06/09: No major overnight events. Continue comfort care measures. We will work with public health social worker foster care case manager for inpatient hospice placement. 06/10: No major overnight events. Continue comfort care measures. We will work with public health social worker foster care case manager for inpatient hospice placement. 06/11: No major overnight events. Continue comfort care measures. We will work with public health social worker foster care case manager for inpatient hospice placement. 06/12: No major overnight events. Continue comfort care measures. We will work with public health social worker foster care case manager for inpatient hospice placement. 06/14: No major overnight events. Continue comfort care measures. We will work with public health social worker foster care case manager for inpatient hospice placement. 06/15: I have now taken over the care of this patient as he is awaiting discharge. Constitutional Vitals: Vital Signs Temp Pulse Resp BP Pulse Ox O2 Del Method O2 Flow Rate 98.2 F 85 16 88/50 92 2 06/15/22 08:00 06/15/22 08:00 06/15/22 08:00 06/15/22 08:00 06/15/22 08:00 06/15/22 08:00 06/13/22 20:00 Period Temp Pulse Resp BP Sys/Guerra Pulse Ox O2 Del Method O2 Flow Rate Last 24 Hr 98.2 F-98.2 F 85-90 16-16 76-130/44-112 91-92 Room Air-Room Air Intake and Output 06/14/22 06/15/22 06/15/22 21:59 05:59 13:59 Intake Total 50 Output Total 3 Balance 50 -3 Weight 40.597 kg Intake & Output: Intake & Output 06/14/22 06/15/22 06/15/22 21:59 05:59 13:59 Intake Total 50 Output Total 3 Balance 50 -3 Weight 40.597 kg Intake: Oral 50 Output: # of times incontinent of urine 3 Other: Urine Appearance Cloudy Urine Color Dark Yellow Urine Odor Normal Normal # Voids 2 Head Head exam: Present atraumatic and normal inspection Eye Eye exam: Present normal appearance ENT ENT exam: Present mucous membranes moist, normal exam and normal external ear exam Neck Neck exam: Present normal inspection Respiratory Respiratory exam: Present normal respiratory exam Cardiovascular Cardiovascular exam: Present normal rate and rhythm GI/Abdominal GI/Abdominal exam: Present normal bowel sounds Back Exam Back exam: Present normal inspection Neurological Exam Neurological exam: Present alert and oriented X3 Skin Skin exam: Present intact and warm OBJ DATA Labs CBC & Chem 7: 06/04/22 18:12 06/04/22 18:12 Meds: Medications Acetaminophen (Acetaminophen 325 Mg Tablet) 650 mg PO Q6HP PRN; Protocol PRN Reason: Per Pain Protocol/Fever > 101 Albuterol/Ipratropium (Ipratropium/Albuterol 3 Ml Ampul.Neb) 3 ml NEB Q4HP PRN PRN Reason: Shortness Of Breath Docusate Sodium (Docusate Sodium 100 Mg Capsule) 100 mg PO BID [facility] Last Admin: 06/15/22 08:42 Dose: Not Given Fentanyl (Fentanyl 25 Mcg Patch) 25 mcg TOPICAL Q72H [facility] Last Admin: 06/13/22 11:39 Dose: 25 mcg Glucose Oxid/Lactoperoxid/Muramidas (Lactoperoxi/Gluc Oxid/Pot Thio 1 Each Gel..Ea.) 1 each TOPICAL PRN PRN PRN Reason: Dry Mouth Hydromorphone HCl (Hydromorphone 1 Mg/Ml Syringe) 0.5 - 2 mg IV Q2HP PRN; Protocol PRN Reason: Per Pain Protocol Lorazepam (Lorazepam 1 Mg Tablet) 1 mg SL Q1HP PRN PRN Reason: Anxiety Morphine Sulfate (Morphine 4 Mg/Ml Vial) 4 mg NEB Q4HP PRN PRN Reason: Shortness Of Breath Morphine Sulfate (Morphine 20 Mg/Ml Oral.Conc) 5 - 10 mg SL Q2HP PRN; Protocol PRN Reason: Per Pain Protocol Last Admin: 06/15/22 05:59 Dose: 5 mg Ondansetron HCl (Ondansetron 4 Mg Odt Tablet) 4 mg SL Q4HP PRN; Protocol PRN Reason: Nausea And Vomiting Polyethylene Glycol (Polyethylene Glycol 3350 17 Gm Packet) 17 gm PO DAILYP PRN PRN Reason: Constipation Last Admin: 06/10/22 10:04 Dose: 17 gm Senna (Sennosides 1 Tablet) 2 tab PO DAILYP PRN PRN Reason: Constipation A/P Assessment and plan (1) COPD (chronic obstructive pulmonary disease) with emphysema: Status: Chronic (2) History of prostate cancer: Status: Chronic (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 05/27/2020 (4) Acute alteration in mental status: Status: Acute (5) Anemia: Status: Acute Qualifiers: Anemia type: other cause Other causes of anemia: acute posthemorrhagic Qualified Code(s): D62 - Acute posthemorrhagic anemia (6) Hypertension, essential: Status: Chronic Narrative A/P Narrative: Continue comfort care measures only while awaiting inpatient hospice placement Time Spent With Patient Time: Total time spent is greater than 50% in coordination of care (as documented) at patient's floor/unit and/or counseling patient: Total time spent with greater than 50% in coordination of care (as documented) at patient's floor/unit and/or counseling patient:: 25 - 35 minutes QUALITY VTE Deep Vein Thrombosis/Pulmonary Embolism Present on Admission: No
--- NOTE | 2022-06-19 09:22 | Discharge Summary ---
Discharge Provider Provider IMPORTANT FOLLOW-UP INFORMATION FOR PCP: Patient information: Note initiated : 06/19/22 at 9:20 am Service Date, if different from initiated Date: [] Patient: Emerson Moreno 77 y/o M admitted on 06/05/22 for Failure to thrive. Chief Complaint: [] Date of admission: 06/05/22 01:10 Discharge date: 06/15/22 Primary care physician: Annamaria Valencia Consults: 06/04/22 19:33 Consult to Physician [CONS] Stat Comment: Consulting Provider: Pascual Bird Reason For Exam: Physician to Consult Attending physician on discharge: Jasmit Nataly COURSE Hospital Course Hospital course: Mr. Moreno is a 77 year old M Presents to the ED with recent stupor declining in the home. APS is involved. Patient has [facility] involved in his care. APS unable to contact sister. [employer] is out of town. EMS found to young people smoking meth in the home that ran out when they arrived. Patient was found to be covered in stool. Patient not speaking. Patient saturations 87% on room air. Chest x-ray showing large left pleural effusion. Patient has a history of prostate cancer and metastatic disease to the liver as well as the pelvis lumbar spine and thoracic spine. He has declined treatment and thus the reason for being on hospice. He also has a history of severe cardiomyopathy severe vascular disease and COPD. History is obtained from chart as patient does not communicate sometimes speaks unintelligibly 06/06 Patient sleeping but awakens to touch. Nonverbal. 06/07 No changes overnight. Patient little more talkative to staff overnight but not to me this morning. Review of system: Unable to obtain given patient nonverbal status 06/08: No major overnight events. Continue comfort care measures. We will work with geriatric social work professor family caseworker for inpatient hospice placement. 06/09: No major overnight events. Continue comfort care measures. We will work with geriatric social work professor family caseworker for inpatient hospice placement. 06/10: No major overnight events. Continue comfort care measures. We will work with geriatric social work professor family caseworker for inpatient hospice placement. 06/11: No major overnight events. Continue comfort care measures. We will work with geriatric social work professor family caseworker for inpatient hospice placement. 06/12: No major overnight events. Continue comfort care measures. We will work with geriatric social work professor family caseworker for inpatient hospice placement. 06/14: No major overnight events. Continue comfort care measures. We will work with geriatric social work professor family caseworker for inpatient hospice placement. 06/15: Informed by the RN that the patient . Discharge diagnosis: Prostate CA, end of life Time Spent with Patient Time attestation: Total time spent providing and/or coordinating discharge services: Time spent: Greater than 30 minutes EXAM Constitutional Vitals: Temp Pulse Resp BP Pulse Ox O2 Del Method O2 Flow Rate 98.2 F 85 16 88/50 92 2 06/15/22 08:00 06/15/22 08:00 06/15/22 08:00 06/15/22 08:00 06/15/22 08:00 06/15/22 08:00 06/13/22 20:00 Discharge Plan Patient/Caregiver Discharge Instructions Prescriptions: New morphine 20 mg/5 mL (4 mg/mL) solution 10 mg PO Q1-2HP PRN (Reason: pain) Qty: 100 0RF hyoscyamine sulfate [Levsin/SL] 0.125 mg tablet, sublingual 0.125 mg sublingual QID PRN (Reason: terminal secretions) Qty: 20 0RF ondansetron 4 mg tablet,disintegrating 4 mg translingual Q6H PRN (Reason: nausea and vomiting) Qty: 30 0RF lorazepam 2 mg/mL concentrate 1 mg sublingual Q2HP PRN (Reason: anxiety) Qty: 30 0RF No Action simvastatin 20 MG tablet 20 mg PO HS lisinopril 5 MG tablet 5 mg PO DAILY atenolol 50 MG tablet 50 mg PO ONCE ondansetron [Zofran ODT] 4 MG tablet,disintegrating 4 mg PO Q4-6H PRN (Reason: Nausea And Vomiting) Qty: 14 0RF Follow Up Plan Patient Disposition: Prognosis: Serious Overall status at discharge: other Discharge Orders: Discharge Order (Routine); Ordered 06/19/22 Ordered By: Romero ELLIS VTE Deep Vein Thrombosis/Pulmonary Embolism Present on Admission: No
== END 2022-06-15 20:15 | disposition expired | DRG 722 ==
LOC: ED 16:49 → MEDSUR 06-05 01:10
PROVIDERS: ADMIT Internal Medicine; ATTEND Student in an Organized Health Care Education/Training Program